=== PATIENT | male | born 1955 | race Caucasian/White ===

== ENCOUNTER 2020-09-29 10:43 | Inpatient (IN) | payer BC, SELFPAY ==
[~2020-09-29] VITALS: Ht 160 cm; Wt 68.9 kg
[2020-09-29 11:04] VITALS: BP_SYST 107
[2020-09-29 12:01] LABS: BASOPHILS % (AUTO) 0.3 % (0.0-2.0); EOSINOPHILS # (AUTO) 0.4 K/uL (0.0-0.4); EOSINOPHILS % (AUTO) 5.2 % (0.0-4.0); HEMATOCRIT 42.3 % (36-54); HEMOGLOBIN 14.6 g/dL (14.0-18.0); LYMPHOCYTES # (AUTO) 1.9 K/uL (1.0-5.5); LYMPHOCYTES % (AUTO) 27.7 % (20.5-51.5); MEAN CORPUSCULAR HEMOGLOBIN 34 pg (27-31); MEAN CORPUSCULAR HGB CONC 34 % (32-36); MEAN CORPUSCULAR VOLUME 99 fL (79.0-98.0); MONOCYTES # (AUTO) 0.7 K/uL (0.0-1.0); MONOCYTES % (AUTO) 10.1 % (1.7-9.3); NEUTROPHILS # (AUTO) 3.9 K/uL (1.8-7.7); NEUTROPHILS % (AUTO) 56.7 % (40.0-70.0); PLATELET COUNT (AUTO) 237 K/uL (130-430); RED BLOOD CELL COUNT(AUTO) 4.29 MIL/uL (4.2-6.2); RED CELL DISTRIBUTION WIDTH 13.7 % (9.0-15.0); WHITE BLOOD COUNT (AUTO) 6.9 K/uL (4.8-10.8)
[2020-09-29 12:13] LABS: CALCIUM 9.2 mg/dL (8.4-11.0); CREATININE 1.01 mg/dL (0.55-1.30); POTASSIUM 3.2 mmol/L (3.5-5.1)
[2020-09-29 12:19] LABS: ALBUMIN 3.6 g/dL (3.4-4.8); TOTAL BILIRUBIN 0.9 mg/dL (0.0-1.0)
[2020-09-29 12:29] LABS: INR 5.5 (0.80-1.20); PROTHROMBIN TIME 53.5 SECS (9.5-12.5)
[2020-09-29] MEDS ORDERED: IPRA3AMP9 (13:00)
[2020-09-29] MEDS ORDERED: PROP20TA7 PO (13:00)
[2020-09-29] MEDS ORDERED: [UNRECOGNIZED DRUG - OTHER] PO (13:00)
[2020-09-29] MEDS ORDERED: ECO81 PO (13:00)
[2020-09-29] MEDS ORDERED: NIFE90TA2 PO (13:00)
[2020-09-29] MEDS ORDERED: SIMV80TA2 PO (13:00)
[2020-09-29] MEDS ORDERED: PREG150C46 PO (13:00)
[2020-09-29] MEDS ORDERED: TIOT18CA3 INH (13:00)
[2020-09-29] MEDS ORDERED: RAMI10CA42 PO (13:00)
[2020-09-29] MEDS ORDERED: HYDR25TA4 PO (13:00)
[2020-09-29] MEDS ORDERED: EZET10TA PO (13:00)
[2020-09-29] MEDS ORDERED: POTA-88 PO (13:00)
[2020-09-29] MEDS ORDERED: cefTRIAXone 1 GM in D5W 50 ML IV ONE (14:00)
[2020-09-29] MEDS ORDERED: ALBUTEROL SULFATE 0.083% 2.5 MG/3 ML VIAL.NEB INH PRN (14:30)
[2020-09-29] MEDS ORDERED: IPRATROPIUM BROM 0.5 MG/2.5 ML VIAL.NEB (ATROVENT) INH PRN (14:30)
[2020-09-29] MEDS ORDERED: cefTRIAXone 1 GM VIAL ONE (14:33)
[2020-09-29] MEDS ORDERED: ALBUTEROL SULFATE 0.083% 2.5 MG/3 ML VIAL.NEB INH ONE (15:15)
[2020-09-29] MEDS ORDERED: IPRATROPIUM BROM 0.5 MG/2.5 ML VIAL.NEB (ATROVENT) INH ONE (15:15)
[2020-09-29] MEDS ORDERED: AZITHROMYCIN 500 MG in NS 250 ML IV SCH (15:30)
[2020-09-29 16:51] VITALS: BP_SYST 104
[2020-09-29] MEDS: PROPRANOLOL HCL 10 MG TABLET (INDERAL) PO SCH ×2 (17:00→21:00)
[2020-09-29 18:00] VITALS: BP_SYST 121
[2020-09-29 19:31] VITALS: BP_SYST 112
[2020-09-29] MEDS: ALBUTEROL SULFATE 0.083% 2.5 MG/3 ML VIAL.NEB INH SCH (20:46)
[2020-09-29] MEDS: IPRATROPIUM BROM 0.5 MG/2.5 ML VIAL.NEB (ATROVENT) INH SCH (20:47)
[2020-09-29] MEDS ORDERED: ramipriL 5 MG CAPSULE PO SCH (21:00)
[2020-09-29] MEDS: lisinopriL 20 MG TABLET PO SCH (21:19)
[2020-09-30 00:05] VITALS: BP_SYST 99
[2020-09-30] MEDS: ALBUTEROL SULFATE 0.083% 2.5 MG/3 ML VIAL.NEB INH SCH ×4 (01:00→19:59)
[2020-09-30] MEDS: IPRATROPIUM BROM 0.5 MG/2.5 ML VIAL.NEB (ATROVENT) INH SCH ×4 (01:00→19:59)
[2020-09-30 08:00] VITALS: BP_SYST 104
[2020-09-30] MEDS ORDERED: cefTRIAXone 1 GM in D5W 50 ML IV SCH (09:00)
[2020-09-30] MEDS: PROPRANOLOL HCL 10 MG TABLET (INDERAL) PO SCH ×4 (10:34→21:00)
[2020-09-30] MEDS: NIFEDIPINE 90 MG TABLET.SA (PROCARDIA XL 90 MG) PO SCH (10:34)
[2020-09-30] MEDS: metroNIDAZOLE 500 mg/NS 100 ML IV SCH ×3 (11:28→21:04)
[2020-09-30 12:21] VITALS: BP_SYST 111
[2020-09-30 16:39] VITALS: BP_SYST 99
[2020-09-30 20:00] VITALS: BP_SYST 96
[2020-09-30] MEDS: lisinopriL 20 MG TABLET PO SCH (21:00)
[2020-10-01 00:33] VITALS: BP_SYST 102
[2020-10-01] MEDS: IPRATROPIUM BROM 0.5 MG/2.5 ML VIAL.NEB (ATROVENT) INH SCH ×4 (01:00→20:05)
[2020-10-01] MEDS: ALBUTEROL SULFATE 0.083% 2.5 MG/3 ML VIAL.NEB INH SCH ×4 (01:00→20:05)
[2020-10-01] MEDS: metroNIDAZOLE 500 mg/NS 100 ML IV SCH ×3 (06:45→21:12)
[2020-10-01 08:00] VITALS: BP_SYST 119
[2020-10-01] MEDS ORDERED: POTASSIUM CHLORIDE 20 MEQ TAB.PRT.SR PO ONE (08:15)
[2020-10-01] MEDS: NIFEDIPINE 90 MG TABLET.SA (PROCARDIA XL 90 MG) PO SCH (09:00)
[2020-10-01] MEDS: PROPRANOLOL HCL 10 MG TABLET (INDERAL) PO SCH ×4 (09:00→21:12)
[2020-10-01 10:23] LABS: INR 0.9 (0.80-1.20); PROTHROMBIN TIME 9.9 SECS (9.5-12.5)
[2020-10-01 12:03] VITALS: BP_SYST 117
[2020-10-01 16:05] VITALS: BP_SYST 116
[2020-10-01 20:00] VITALS: BP_SYST 115
[2020-10-01] MEDS: lisinopriL 20 MG TABLET PO SCH (21:13)
[2020-10-02 00:47] VITALS: BP_SYST 116
[2020-10-02] MEDS: metroNIDAZOLE 500 mg/NS 100 ML IV SCH ×3 (05:24→21:55)
[2020-10-02] MEDS: IPRATROPIUM BROM 0.5 MG/2.5 ML VIAL.NEB (ATROVENT) INH SCH ×3 (07:13→20:00)
[2020-10-02] MEDS: ALBUTEROL SULFATE 0.083% 2.5 MG/3 ML VIAL.NEB INH SCH ×3 (07:13→20:00)
[2020-10-02] MEDS: PROPRANOLOL HCL 10 MG TABLET (INDERAL) PO SCH ×4 (08:27→21:56)
[2020-10-02] MEDS: NIFEDIPINE 90 MG TABLET.SA (PROCARDIA XL 90 MG) PO SCH (08:27)
[2020-10-02 08:29] VITALS: BP_SYST 108
[2020-10-02 11:46] LABS: BASOPHILS % (AUTO) 0.5 % (0.0-2.0); EOSINOPHILS # (AUTO) 0.3 K/uL (0.0-0.4); EOSINOPHILS % (AUTO) 4.2 % (0.0-4.0); HEMOGLOBIN 13.3 g/dL (14.0-18.0); LYMPHOCYTES # (AUTO) 1.4 K/uL (1.0-5.5); LYMPHOCYTES % (AUTO) 23.4 % (20.5-51.5); MEAN CORPUSCULAR HEMOGLOBIN 34 pg (27-31); MEAN CORPUSCULAR HGB CONC 34 % (32-36); MEAN CORPUSCULAR VOLUME 100 fL (79.0-98.0); MONOCYTES # (AUTO) 0.6 K/uL (0.0-1.0); MONOCYTES % (AUTO) 10.8 % (1.7-9.3); NEUTROPHILS # (AUTO) 3.6 K/uL (1.8-7.7); NEUTROPHILS % (AUTO) 61.1 % (40.0-70.0); PLATELET COUNT (AUTO) 211 K/uL (130-430); RED CELL DISTRIBUTION WIDTH 14.2 % (9.0-15.0)
[2020-10-02 11:51] LABS: CREATININE 0.83 mg/dL (0.55-1.30)
[2020-10-02 11:55] LABS: ALBUMIN 3.2 g/dL (3.4-4.8); TOTAL BILIRUBIN 0.5 mg/dL (0.0-1.0)
[2020-10-02 12:15] VITALS: BP_SYST 121
[2020-10-02 16:30] VITALS: BP_SYST 112
[2020-10-02 20:29] VITALS: BP_SYST 119
[2020-10-02] MEDS: lisinopriL 20 MG TABLET PO SCH (21:55)
[2020-10-03 00:21] VITALS: BP_SYST 109
[2020-10-03] MEDS: ALBUTEROL SULFATE 0.083% 2.5 MG/3 ML VIAL.NEB INH SCH ×4 (01:34→19:55)
[2020-10-03] MEDS: IPRATROPIUM BROM 0.5 MG/2.5 ML VIAL.NEB (ATROVENT) INH SCH ×4 (01:34→19:55)
[2020-10-03] MEDS: metroNIDAZOLE 500 mg/NS 100 ML IV SCH (05:14)
[2020-10-03 08:00] VITALS: BP_SYST 117
[2020-10-03] MEDS: NIFEDIPINE 90 MG TABLET.SA (PROCARDIA XL 90 MG) PO SCH (08:54)
[2020-10-03] MEDS: PROPRANOLOL HCL 10 MG TABLET (INDERAL) PO SCH ×4 (08:55→21:10)
[2020-10-03] MEDS ORDERED: DOXY100C PO (11:14)
[2020-10-03] MEDS ORDERED: CEFE2VIA3 IJ (11:14)
[2020-10-03 11:46] LABS: BILIRUBIN,URINE NEGATIVE (NEGATIVE); BLOOD, URINE NEGATIVE (NEGATIVE); CLARITY/URINE CLEAR (CLEAR); COLOR,URINE YELLOW (YELLOW); GLUCOSE,URINE NEGATIVE (NEGATIVE); KETONES,URINE NEGATIVE (NEGATIVE); LEUKOCYTE ESTERASE ,URINE NEGATIVE (NEGATIVE); NITRITE, URINE NEGATIVE (NEGATIVE); PH,URINE 5.5 (5.0-8.0); PROTEIN URINE NEGATIVE (NEGATIVE); UROBILINOGEN,URINE 0.2 (0.2-1.0)
[2020-10-03 12:00] VITALS: BP_SYST 138
[2020-10-03] MEDS: PIPERACILLIN/TAZO 4.5GM/DEX-IS 100 ML IV SCH ×2 (14:05→21:12)
[2020-10-03 17:55] VITALS: BP_SYST 112
[2020-10-03 20:00] VITALS: BP_SYST 121
[2020-10-03] MEDS: lisinopriL 20 MG TABLET PO SCH (21:11)
[2020-10-04] VITALS: BP_SYST 110
[2020-10-04] MEDS: ALBUTEROL SULFATE 0.083% 2.5 MG/3 ML VIAL.NEB INH SCH ×3 (03:29→13:23)
[2020-10-04] MEDS: IPRATROPIUM BROM 0.5 MG/2.5 ML VIAL.NEB (ATROVENT) INH SCH ×3 (03:29→13:23)
[2020-10-04] MEDS: PIPERACILLIN/TAZO 4.5GM/DEX-IS 100 ML IV SCH ×3 (06:04→23:32)
[2020-10-04 06:57] LABS: BASOPHILS % (AUTO) 0.5 % (0.0-2.0); EOSINOPHILS # (AUTO) 0.4 K/uL (0.0-0.4); EOSINOPHILS % (AUTO) 6.6 % (0.0-4.0); HEMATOCRIT 36.3 % (36-54); HEMOGLOBIN 12.3 g/dL (14.0-18.0); LYMPHOCYTES # (AUTO) 1.3 K/uL (1.0-5.5); MEAN CORPUSCULAR HEMOGLOBIN 34 pg (27-31); MEAN CORPUSCULAR HGB CONC 34 % (32-36); MEAN CORPUSCULAR VOLUME 101 fL (79.0-98.0); MONOCYTES # (AUTO) 0.6 K/uL (0.0-1.0); MONOCYTES % (AUTO) 11.2 % (1.7-9.3); NEUTROPHILS # (AUTO) 3.2 K/uL (1.8-7.7); NEUTROPHILS % (AUTO) 58.7 % (40.0-70.0); PLATELET COUNT (AUTO) 206 K/uL (130-430); RED CELL DISTRIBUTION WIDTH 14.2 % (9.0-15.0); WHITE BLOOD COUNT (AUTO) 5.5 K/uL (4.8-10.8)
[2020-10-04 07:36] LABS: C-REACTIVE PROTEIN QUANT 0.6 mg/dL (0-0.5); CALCIUM 8.8 mg/dL (8.4-11.0); CREATININE 0.88 mg/dL (0.55-1.30); POTASSIUM 3.9 mmol/L (3.5-5.1)
[2020-10-04] MEDS: PROPRANOLOL HCL 10 MG TABLET (INDERAL) PO SCH ×4 (08:01→21:00)
[2020-10-04] MEDS: NIFEDIPINE 90 MG TABLET.SA (PROCARDIA XL 90 MG) PO SCH (08:02)
[2020-10-04 08:10] VITALS: BP_SYST 137
[2020-10-04 10:12] LABS: ERYTHROCYTE SEDIMENTATION RATE 12 MM/HR (0-15)
[2020-10-04 12:14] VITALS: BP_SYST 113
[2020-10-04 16:46] VITALS: BP_SYST 138
[2020-10-04] MEDS: lisinopriL 20 MG TABLET PO SCH (21:00)
[2020-10-05 00:27] VITALS: BP_SYST 114
[2020-10-05] MEDS: IPRATROPIUM BROM 0.5 MG/2.5 ML VIAL.NEB (ATROVENT) INH SCH ×5 (01:00→19:43)
[2020-10-05] MEDS: ALBUTEROL SULFATE 0.083% 2.5 MG/3 ML VIAL.NEB INH SCH ×5 (01:00→19:43)
[2020-10-05] MEDS: PIPERACILLIN/TAZO 4.5GM/DEX-IS 100 ML IV SCH ×3 (05:59→23:33)
[2020-10-05 08:00] VITALS: BP_SYST 110
[2020-10-05] MEDS: PROPRANOLOL HCL 10 MG TABLET (INDERAL) PO SCH ×4 (08:41→21:00)
[2020-10-05] MEDS: NIFEDIPINE 90 MG TABLET.SA (PROCARDIA XL 90 MG) PO SCH (08:41)
[2020-10-05 09:19] VITALS: BP_SYST 114
[2020-10-05 11:06] LABS: ANTI NUCLEAR AB WITH REFLEX Positive (Negative)
[2020-10-05 12:00] VITALS: BP_SYST 122
[2020-10-05 12:39] LABS: BASOPHILS % (AUTO) 0.6 % (0.0-2.0); EOSINOPHILS # (AUTO) 0.3 K/uL (0.0-0.4); EOSINOPHILS % (AUTO) 6.5 % (0.0-4.0); HEMATOCRIT 36.6 % (36-54); HEMOGLOBIN 12.5 g/dL (14.0-18.0); LYMPHOCYTES # (AUTO) 1.2 K/uL (1.0-5.5); LYMPHOCYTES % (AUTO) 23.1 % (20.5-51.5); MEAN CORPUSCULAR HEMOGLOBIN 34 pg (27-31); MEAN CORPUSCULAR HGB CONC 34 % (32-36); MEAN CORPUSCULAR VOLUME 100 fL (79.0-98.0); MONOCYTES # (AUTO) 0.5 K/uL (0.0-1.0); NEUTROPHILS % (AUTO) 59.8 % (40.0-70.0); PLATELET COUNT (AUTO) 234 K/uL (130-430); RED BLOOD CELL COUNT(AUTO) 3.65 MIL/uL (4.2-6.2); RED CELL DISTRIBUTION WIDTH 14.1 % (9.0-15.0); WHITE BLOOD COUNT (AUTO) 5.1 K/uL (4.8-10.8)
[2020-10-05 16:00] VITALS: BP_SYST 97
[2020-10-05 20:00] VITALS: BP_SYST 100
[2020-10-05] MEDS: lisinopriL 20 MG TABLET PO SCH (21:00)
[2020-10-06] MEDS: IPRATROPIUM BROM 0.5 MG/2.5 ML VIAL.NEB (ATROVENT) INH SCH ×4 (01:00→21:48)
[2020-10-06] MEDS: ALBUTEROL SULFATE 0.083% 2.5 MG/3 ML VIAL.NEB INH SCH ×4 (01:00→21:48)
[2020-10-06] MEDS: PIPERACILLIN/TAZO 4.5GM/DEX-IS 100 ML IV SCH ×3 (05:26→21:52)
[2020-10-06] MEDS: PROPRANOLOL HCL 10 MG TABLET (INDERAL) PO SCH ×4 (08:18→21:53)
[2020-10-06] MEDS: NIFEDIPINE 90 MG TABLET.SA (PROCARDIA XL 90 MG) PO SCH (08:19)
[2020-10-06 11:06] VITALS: BP_SYST 102
[2020-10-06 12:00] VITALS: BP_SYST 103
[2020-10-06 13:07] LABS: ATYPICAL pANCA <1:20 titer (Neg:<1:20); CYTOPLASMIC (C-ANCA) <1:20 titer (Neg:<1:20); CYTOPLASMIC (P-ANCA) <1:20 titer (Neg:<1:20)
[2020-10-06 16:00] VITALS: BP_SYST 112
[2020-10-06 20:00] VITALS: BP_SYST 142
[2020-10-06] MEDS: lisinopriL 20 MG TABLET PO SCH (21:54)
[2020-10-07] VITALS: BP_SYST 114
[2020-10-07] MEDS: ALBUTEROL SULFATE 0.083% 2.5 MG/3 ML VIAL.NEB INH SCH ×4 (01:00→20:44)
[2020-10-07] MEDS: IPRATROPIUM BROM 0.5 MG/2.5 ML VIAL.NEB (ATROVENT) INH SCH ×4 (01:00→20:45)
[2020-10-07] MEDS: PIPERACILLIN/TAZO 4.5GM/DEX-IS 100 ML IV SCH ×3 (05:27→22:30)
[2020-10-07 08:00] VITALS: BP_SYST 97
[2020-10-07] MEDS: NIFEDIPINE 90 MG TABLET.SA (PROCARDIA XL 90 MG) PO SCH (09:00)
[2020-10-07] MEDS: PROPRANOLOL HCL 10 MG TABLET (INDERAL) PO SCH ×4 (09:00→22:31)
[2020-10-07] MEDS ORDERED: PROPRANOLOL HCL 10 MG TABLET (INDERAL) ONE (09:03)
[2020-10-07 12:00] VITALS: BP_SYST 101
[2020-10-07 16:00] VITALS: BP_SYST 98
[2020-10-07 20:00] VITALS: BP_SYST 108
[2020-10-07 22:30] VITALS: BP_SYST 142
[2020-10-07] MEDS: lisinopriL 20 MG TABLET PO SCH (22:31)
[2020-10-08] VITALS: BP_SYST 125
[2020-10-08] MEDS: ALBUTEROL SULFATE 0.083% 2.5 MG/3 ML VIAL.NEB INH SCH ×3 (01:53→13:00)
[2020-10-08] MEDS: IPRATROPIUM BROM 0.5 MG/2.5 ML VIAL.NEB (ATROVENT) INH SCH ×3 (01:54→13:00)
[2020-10-08] MEDS: PIPERACILLIN/TAZO 4.5GM/DEX-IS 100 ML IV SCH (06:18)
[2020-10-08 08:08] VITALS: BP_SYST 114
[2020-10-08 08:10] VITALS: BP_SYST 114
[2020-10-08] MEDS: PROPRANOLOL HCL 10 MG TABLET (INDERAL) PO SCH (08:12)
[2020-10-08] MEDS: NIFEDIPINE 90 MG TABLET.SA (PROCARDIA XL 90 MG) PO SCH (08:13)
[2020-10-08 14:31] VITALS: BP_SYST 114
== END 2020-10-08 15:05 | disposition home or self-care (01) | DRG 178 ==
LOC: SED 10:43 → STU 14:28 → SMU 09-30 11:35
PROVIDERS: ADMIT Internal Medicine Hospice and Palliative Medicine; ATTEND Internal Medicine Hospice and Palliative Medicine
PROC: 02HV33Z Insertion of Infusion Device into Superior Vena Cava, Percutaneous Approach (ICD-10-PCS; principal; 2020-10-01)
PROC: B548ZZA Ultrasonography of Superior Vena Cava, Guidance (ICD-10-PCS; 2020-10-01)
DX: J85.1 Abscess of lung with pneumonia (principal); R04.2 Hemoptysis; J44.0 Chronic obstructive pulmonary disease with (acute) lower respiratory infection; I25.10 Atherosclerotic heart disease of native coronary artery without angina pectoris; I10 Essential (primary) hypertension; K08.89 Other specified disorders of teeth and supporting structures; F17.210 Nicotine dependence, cigarettes, uncomplicated; Z20.822 Contact with and (suspected) exposure to COVID-19; Z79.82 Long term (current) use of aspirin; Z79.899 Other long term (current) drug therapy; Z98.61 Coronary angioplasty status
CPT/HCPCS: 36415; 71045; 71260-TC; 76376; 80048; 80053; 81003; 82785; 83605; 83880; 84484; 85025; 85610-TC; 85651-TC; 85730-TC; 86038; 86140; 86256; 86480; 86635; 87040-TC; 87305; 87449; 93005; 94640; 94760; 96365; 99285; G0378; J0456; J0696; J2543; J3490; J7050; J7060; J7613; Q9967

== ENCOUNTER 2020-11-10 09:48 | Outpatient (CLI) | payer BC ==
[~2020-11-10 09:48] MED LIST: CEFE2VIA3 IJ; DOXY100C PO; EZET10TA PO; HYDR25TA4 PO; IPRA3AMP9; NIFE90TA2 PO; POTA-88 PO; PREG150C46 PO; PROP20TA7 PO; RAMI10CA42 PO; SIMV80TA2 PO; TIOT18CA3 INH; [UNRECOGNIZED DRUG - OTHER] PO
== END 2020-11-10 19:25 | disposition home or self-care (01) ==
LOC: SCT 09:48
PROVIDERS: ATTEND Internal Medicine Critical Care Medicine
DX: R91.8 Other nonspecific abnormal finding of lung field (principal); I70.0 Atherosclerosis of aorta; E27.8 Other specified disorders of adrenal gland; K76.89 Other specified diseases of liver; R04.2 Hemoptysis
CPT/HCPCS: 71260; 76376; Q9967